=== PATIENT | female | born 1990 | race Caucasian/White ===

== ENCOUNTER 2019-07-15 15:18 | Outpatient (CLI) | payer BC ==
[2019-07-15 17:15] LABS: BASOPHILS % 0.5 % (0.0-1.5); NEUTROPHILS # 6.7 # k/uL (1.4-7.7)
[2019-07-15 17:23] LABS: eGFR (Non-African) > 60
--- NOTE | 2019-07-15 18:15 | Diagnostic Imaging Report ---
PATIENT MR#: [id number] PATIENT PATIENT NAME: REJI SALINAS DATE OF : 1990 REFERRING PHYSICIAN: Soco García EXAM DATE: 07/15/2019 ACCESSION NUMBER: [id number] EXAM DESCRIPTION: ABDOMEN 1VIEW Indication: General abdominal pain for 2 years. Technique: 2 supine views of the abdomen were obtained. Comparison: None available. Findings: The bowel gas pattern is nonobstructive. There is mild stool seen in the distal colon. Ther e is no suspicious calcification or radiopaque foreign bodies over the abdomen. There is left-sided matt sacralization a t L5 incidentally noted. The osseous structures are otherwise unremarkable. Impression: Nonobstructive bowel gas pattern with no suspicious calcifications over the abdomen. Read by: Dr. Garry Vincent Transcribed by: Garry Vincent Transcribed Date: 07/15/2019 6:14:50 PM Electronically signed by: Dr. Garry Vincent Date signed: 07/15/2019 6:14:50 PM
== END 2019-07-15 15:23 ==
LOC: LAB 15:18
PROVIDERS: ATTEND Family Medicine
DX: G56.03 Carpal tunnel syndrome, bilateral upper limbs (principal); R10.84 Generalized abdominal pain
CPT/HCPCS: 36415; 74018; 80053; 84443; 85025

== ENCOUNTER 2019-07-18 12:30 | Outpatient (CLI) | payer BC ==
--- NOTE | 2019-07-18 14:41 | Diagnostic Imaging Report ---
PATIENT MR#: [id number] PATIENT PATIENT NAME: REJI SALINAS DATE OF : 1990 REFERRING PHYSICIAN: Soco García EXAM DATE: 07/18/2019 ACCESSION NUMBER: [id number] EXAM DESCRIPTION: CT ABD PELVIS W/ CON CLINICAL HISTORY: GENERALIZED ABDOMINAL PAIN X OVER 1 YEAR TECHNIQUE: CT abdomen and pelvis following administration of IV contrast. 90 mL of Omnipaque 350 were administered IV. COMPARISON: No prior CT abdomen studies are available at this time. CT ABDOMEN WITH CONTRAST: Lung bases: No lung base infiltrate or effusion. Stomach: Small hiatal hernia noted. Liver: No intrahepatic ductal dilation. Gallbladder: Normally distended. Pancreas: No pancreatic duct dilation. Bowel loops: Nondistended. Spleen: Normal size. Adrenals: Normal size. Kidneys: No hydronephrosis. Aorta: Normal caliber. Peritoneum: No free air. CT PELVIS WITH CONTRAST: Colon: Nondistended. Appendix: Normal appendix is seen. Bladder: Normally distended. Pelvic organs: Small bilateral ovarian cysts. Peritoneum: Scant physiologic fluid. Skeleton: No acute findings. IMPRESSION: 1. No acute abdominal findings. 2. Small hiatal hernia. 3. Small bilateral ovarian cysts. Read by: Dr. Shade Hillman Transcribed by: Shade Hillman Transcribed Date: 07/18/2019 2:40:53 PM Electronically signed by: Dr. Shade Hillman Date signed: 07/18/2019 2:40:53 PM
== END 2019-07-18 12:40 ==
LOC: RAD 12:30
PROVIDERS: ATTEND Family Medicine
DX: R10.84 Generalized abdominal pain (principal)
CPT/HCPCS: 74177; Q9967